=== PATIENT | male | born 1940 | race Caucasian/White ===

== ENCOUNTER → 2017-12-02 | Outpatient (CLI) | payer MEDICARE, OTHER ==
[~2017-12-02] MED LIST: ROSU20TA PO
== END | disposition home or self-care (01) ==
LOC: STAR 13:21
DX: Z01.818 Encounter for other preprocedural examination (principal); K22.70 Barrett's esophagus without dysplasia
CPT/HCPCS: 93005

== ENCOUNTER 2017-12-08 10:43 | Day surgery (SDC) | payer MEDICARE, OTHER ==
[~2017-12-08] VITALS: Ht 180.3 cm; Wt 82.4 kg
[2017-12-08] MEDS ORDERED: LACTATED RINGERS 1,000 ML IV SCH (11:10)
[2017-12-08 11:37] VITALS: BP 143/80
[2017-12-08] MEDS ORDERED: SUCCINYLCHOLINE 20 MG/ML, 10ML ONE (13:01)
[2017-12-08] MEDS ORDERED: PROPOFOL 10 MG/ML, 20ML ONE (13:01)
== END 2017-12-08 14:52 | disposition home or self-care (01) ==
LOC: OUT 10:43
DX: K22.70 Barrett's esophagus without dysplasia (principal)
CPT/HCPCS: 43239; 43270; 88305; J0330; J2704; J7120